=== PATIENT | male | born 1945 | race Caucasian/White ===

== ENCOUNTER 2019-01-20 10:43 | Emergency (ER) | payer OTHER, BC | END 2019-01-20 12:41 | disposition home or self-care (01) | LOC: FTE 10:43 | DX: H61.21 Impacted cerumen, right ear (principal); I10 Essential (primary) hypertension | CPT/HCPCS: 69209; 99283-25 ==

== ENCOUNTER 2019-03-09 11:09 | Emergency (ER) | payer OTHER, BC ==
[2019-03-09 14:34] LABS: TROPONIN-I < 0.012 ng/ml (0.000-0.120)
== END 2019-03-09 15:15 | disposition home or self-care (01) ==
LOC: FTE 11:09
DX: M25.511 Pain in right shoulder (principal); M25.512 Pain in left shoulder; M62.830 Muscle spasm of back; I10 Essential (primary) hypertension; I25.2 Old myocardial infarction
CPT/HCPCS: 84484; 93005; 99284-25

== ENCOUNTER 2019-04-22 09:36 | Emergency (ER) | payer OTHER, BC | END 2019-04-22 11:53 | disposition home or self-care (01) | LOC: FTE 09:36 | DX: M25.511 Pain in right shoulder (principal); M25.512 Pain in left shoulder; I10 Essential (primary) hypertension; I25.2 Old myocardial infarction; F17.210 Nicotine dependence, cigarettes, uncomplicated | CPT/HCPCS: 73020; 73020-50; 99283-25 ==

== ENCOUNTER 2019-07-10 14:54 | Emergency (ER) | payer SELFPAY, BC, OTHER | END 2019-07-10 15:53 | disposition home or self-care (01) | LOC: E/R 15:53 | DX: S90.821A Blister (nonthermal), right foot, initial encounter (principal); I10 Essential (primary) hypertension; I25.2 Old myocardial infarction; L08.9 Local infection of the skin and subcutaneous tissue, unspecified; X50.1XXA Overexertion from prolonged static or awkward postures, initial encounter; Z87.891 Personal history of nicotine dependence | CPT/HCPCS: 99283 ==